=== PATIENT | female | born 1935 | race Caucasian/White ===

== ENCOUNTER 2019-03-31 11:06 | Emergency (ER) | payer OTHER ==
[~2019-03-31] VITALS: Ht 167.6 cm; Wt 68.9 kg
[2019-03-31 11:11] VITALS: BP 106/60; PULSE 76; RESP 20; Ht 167.6 cm; Wt 68.9 kg
--- NOTE | 2019-03-31 12:41 | ERD ---
ER Documentation Chief Complaint Chief Complaint cough x 3 days HPI This is a 83-year-old female patient who presents emergency room with complaint of cough and fever x2 days. Patient has recently traveled from [place] and she states everybody on her plane was coughing and was sick. Patient is alert, well-appearing, no respiratory distress. Patient states she does smoke cigarettes. Denies chest pain, denies shortness of breath. ROS All systems reviewed and are negative except as per history of present illness. Medications Home Meds Active Scripts Albuterol Sulfate* (Proair HFA*) 8.5 Gm Hfa.aer.ad, 2 PUFF INH Q4 for WHEEZING for 10 Days, #1 INHALER Prov:JUANITA PADILLA NP 03/31/19 Benzonatate* (Tessalon Perle*) 100 Mg Capsule, 200 MG PO TID for COUGH for 5 Days, #15 CAP Prov:JUANITA PADILLA NP 03/31/19 Acetaminophen* (Tylophen*) 500 Mg Capsule, 2 CAP PO Q8H PRN for PAIN AND OR ELEVATED TEMP, #20 CAP Prov:JUANITA PADILLA NP 03/31/19 Azithromycin* (Zithromax*) 500 Mg Tablet, 500 MG PO DAILY for BRONCHITIS for 3 Days, #3 TAB Prov:PADILLAJUANITA NP 03/31/19 Allergies Allergies: Coded Allergies: Peanut (Verified Allergy, 03/31/19) PMhx/Soc Medical and Surgical Hx: pt denies Medical Hx FmHx Family History: No diabetes, No coronary disease, No other Physical Exam Vitals Vital Signs Date Temp Pulse Resp B/P (MAP) Pulse Ox O2 O2 Flow FiO2 Time Delivery Rate 03/31/19 98.0 76 20 106/60 95 11:11 (75) Physical Exam Const: No acute distress Head: Atraumatic Eyes: Normal Conjunctiva, PERRL ENT: Normal External Ears, TM clear BL, Nose without drainage or congestion, pharynx pink, moist, no lesions, no petechiae no exudate. Neck: Full range of motion. No meningismus. Lymphadenopathy Resp: Decreased lung sounds in all ferrer with rhonchi to right lower base. Cardio: Regular rate and rhythm, + murmur, atrial arrhythmia Abd: Soft, non tender, non distended. Normal bowel sounds Skin: No petechiae or rashes, good skin turgor, dry Back: No midline or flank tenderness, no spinal tenderness Ext: No cyanosis, or edema Neur: Awake and alert Psych: Normal Mood and Affect Procedures/MDM PROCEDURES/MDM EKG: Read by Dr. Lin, attending physician. EKG shows sinus rhythm with PAC at 93 bpm No arrhythmias, acute ST elevations or T wave changes were noted. DIAGNOSTIC IMAGING: Read by radiologist. Negative for consolidation, infiltration, pneumonia, neoplasm PROCEDURES: none MDM: This is a 83-year-old female patient presents emergency room with complaint of cough x3 days with fever x2 days after flying from [facility]. Patient denies chest pain, there is no shortness of breath. 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 Discussed radiological finding of COPD with patient as she is a smoker and encourage patient to quit smoking. Patient states she has a known murmur with a "bad heart valve" and takes low-dose aspirin for this, EKG reveals PACs. Patient provided with copy of her EKG and chest x-ray for follow- up with her primary care provider. Patient is afebrile, no increased work of breathing, no productive cough, low suspicion for pneumonia, sepsis, bacterial bronchitis. Most likely her symptoms are viral in nature. At the time of discharge, vital signs stable, no respiratory distress. Differential diagnosis include but not limited to: Respiratory infection bacterial/viral/fungal. Influenza, pharyngitis, gastroenteritis, asthma, croup, bronchiolitis, allergies, GERD. Less likely foreign body aspiration, pneumonia . Physical examination and clinical presentation consistent most likely with viral syndrome. During the ED course the patient remained stable. The patient requires a follow up with the primary care provider in the next 48h. If symptoms persist, worsen or new symptoms develop, then patient should return to the ED immediately. Patient was provided with watch and wait prescription for a Zithromax with strict instructions on use. Disclaimer: Inadvertent spelling and grammatical errors are likely due to EHR/di ctation software use and do not reflect on the overall quality of patient care. Also, please note that the electronic time recorded on this note does not necessarily reflect the actual time of the patient encounter. DISPOSITION and PLAN: RX: The patient has been discharge home to follow-up with community physician. Departure Diagnosis: Primary Impression: Viral URI with cough Condition: Stable JUANITA PADILLA NP Mar 31, 2019 12:41
[2019-03-31] MEDS ORDERED: AZIT500T3 PO (13:43)
[2019-03-31] MEDS ORDERED: ACET500C5 PO (13:43)
[2019-03-31] MEDS ORDERED: BENZ-6 PO (13:43)
[2019-03-31] MEDS ORDERED: ALBU8.5H8 INH (13:46)
== END 2019-03-31 14:40 | disposition home or self-care (01) ==
LOC: FTE 11:06
DX: J06.9 Acute upper respiratory infection, unspecified (principal); F17.210 Nicotine dependence, cigarettes, uncomplicated
CPT/HCPCS: 71046; 93005